=== PATIENT | male | born 1940 | race Caucasian/White ===

== ENCOUNTER → 2016-04-14 | Outpatient (CLI) | payer MEDICARE, OTHER | END | disposition home or self-care (01) | LOC: RAD.S 12:01 | DX: C34.12 Malignant neoplasm of upper lobe, left bronchus or lung (principal); C34.80 Malignant neoplasm of overlapping sites of unspecified bronchus and lung; I10 Essential (primary) hypertension ==

== ENCOUNTER 2016-05-17 05:59 | Day surgery (SDC) | payer MEDICARE, OTHER ==
[~2016-05-17] VITALS: Ht 170.2 cm; Wt 53.0 kg
--- NOTE | 2016-05-25 10:45 | OR ---
ADMIT: 05/17/2016 RM/LOC: [facility] MR#: [id number] [id number] CHRISTOPHE DUSTIN Sowmya [address] [place] [address] Operative/Delivery Room Report SEX: M AGE: 75 : 1940 SURGERY DATE: 05/17/2016 SURGEON: Finesse Ochoa MD PREOPERATIVE DIAGNOSES: 1. Need for screening colonoscopy. 2. A 1 cm cystic structure, lateral aspect of his left eyelid. POSTOPERATIVE DIAGNOSES: 1. Normal colonoscopy. 2. A 1 cm cystic structure, lateral aspect of his left eyelid region. PROCEDURE PERFORMED: 1. Colonoscopy. 2. Excision of a 1 cm cystic mass, left lateral eyelid. ANESTHESIA: Local MAC. ESTIMATED BLOOD LOSS: Less than 10 mL. DESCRIPTION OF PROCEDURE: After appropriate informed consent was obtained, the patient was brought to the operating room. The area around his left lateral eye was cleansed and draped in sterile fashion. A 1% lidocaine with epinephrine was injected in the skin and deep tissues. He had a 1 cm cystic mass that was getting to be a problem for him, it was blocking some of his peripheral view, so he would like to have this removed. So, in the office, I did go ahead and make an elliptical transverse incision and excise this 1 cm cystic mass in its entirety. The wound was then inspected and felt to be dry and closed with several interrupted 4-0 Monocryl sutures in the subcuticular layer. Steri-Strips were then applied. ADMIT: 05/17/2016 RM/LOC: [facility] MR#: [id number] [address] CIERRACANDELARIO DUSTIN D[address] [place] [address] Operative/Delivery Room Report SEX: M AGE: 75 : 1940 I then proceeded with colonoscopy. Rectal exam revealed a very large prostate, no obvious nodules, some mild hemorrhoids. The scope was introduced, passed the entire length of colon. He had a very good prep. No polyps or masses were identified. The scope was easily advanced to the cecum. The ileocecal valve and appendical orifice were normal. The scope was slowly and carefully drawn and again, the colonic mucosa appeared normal on the way out. The scope was retroflexed in rectum revealing mild internal hemorrhoids, no rectal masses. The patient tolerated the procedure well and was taken to the recovery room in stable condition. Finesse Ochoa MD/ ara JOB #: [id number] CC: Finesse Ochoa, Attending Physician Jing Johnston, Family Physician Jing Johnston, MARTIN
== END 2016-05-17 10:25 | disposition home or self-care (01) ==
LOC: SSS 05:59
PROC: 08B Eye, Excision (ICD-10-PCS; principal; 2016-05-17)
PROC: 0DJD8ZZ Inspection of Lower Intestinal Tract, Via Natural or Artificial Opening Endoscopic (ICD-10-PCS; principal; 2016-05-17)
DX: Z12.11 Encounter for screening for malignant neoplasm of colon (principal); H02.824 Cysts of left upper eyelid; I10 Essential (primary) hypertension; Z86.73 Personal history of transient ischemic attack (TIA), and cerebral infarction without residual deficits; Z79.899 Other long term (current) drug therapy; F17.200 Nicotine dependence, unspecified, uncomplicated; Z85.118 Personal history of other malignant neoplasm of bronchus and lung
CPT/HCPCS: 11441; G0121